=== PATIENT | female | born 1985 | race Two or more races ===

== ENCOUNTER 2019-05-08 15:05 | Observation (INO) | payer MEDICAID ==
[~2019-05-08 15:05] MED LIST: FERR-7 PO; PREN-96 PO
[2019-05-08 16:31] LABS: Albumin 2.4 g/dL (3.4-5.0); BUN/Creatinine Ratio 17.6; Calcium 8.3 mg/dL (8.5-10.1); Potassium 3.7 mmol/L (3.5-5.1)
[2019-05-08 16:34] LABS: Bilirubin, Total 0.2 mg/dL (0.2-1.0); Total Protein 6.9 g/dL (6.4-8.2)
== END 2019-05-08 16:00 | disposition home or self-care (01) | DRG 566 ==
LOC: LDRP 15:05 → MERGE 15:05
PROVIDERS: ADMIT Specialist; ATTEND Specialist
DX: O26.612 Liver and biliary tract disorders in pregnancy, second trimester (principal); Z3A.26 26 weeks gestation of pregnancy
CPT/HCPCS: 36415; 59025; 80053; 81002; G0378

== ENCOUNTER 2019-05-24 10:00 | Observation (INO) | payer MEDICAID ==
[2019-05-24] MEDS ORDERED: URSO300C9 PO (11:44)
[2019-05-24] MEDS ORDERED: ASPI81CH4 PO (11:44)
== END 2019-05-24 12:00 | disposition home or self-care (01) | DRG 566 ==
LOC: LDRP 10:00
PROVIDERS: ADMIT Specialist; ATTEND Specialist
DX: O26.893 Other specified pregnancy related conditions, third trimester (principal); L01.00 Impetigo, unspecified; L30.9 Dermatitis, unspecified; Z3A.28 28 weeks gestation of pregnancy
CPT/HCPCS: 76818; 81002; 99284; G0378

== ENCOUNTER 2019-05-29 16:07 | Observation (INO) | payer MEDICAID ==
[~2019-05-29] VITALS: Ht 154.9 cm; Wt 87.1 kg
[~2019-05-29 16:07] MED LIST changes: +ASPI81CH4 PO; +URSO300C9 PO
== END 2019-05-29 17:36 | disposition home or self-care (01) ==
LOC: LDRP 16:07
PROVIDERS: ADMIT Obstetrics & Gynecology; ATTEND Obstetrics & Gynecology
DX: K83.1 Obstruction of bile duct (principal)
CPT/HCPCS: 76818; G0378; 81002

== ENCOUNTER 2019-05-31 10:25 | Observation (INO) | payer MEDICAID ==
[~2019-05-31 10:25] MED LIST changes: -ASPI81CH4 PO; +ASPI81CH74 PO
== END 2019-05-31 12:46 | disposition home or self-care (01) | DRG 566 ==
LOC: LDRP 10:25
PROVIDERS: ADMIT Specialist; ATTEND Specialist
DX: O26.613 Liver and biliary tract disorders in pregnancy, third trimester (principal); K83.1 Obstruction of bile duct; Z3A.30 30 weeks gestation of pregnancy
CPT/HCPCS: 76818; G0378; 59025; 81002

== ENCOUNTER 2019-06-05 16:30 | Observation (INO) | payer MEDICAID ==
[2019-06-05 17:29] LABS: Basophils # (auto) 0 10 ^3/uL (0-0.2); Basophils % (auto) 0.4 % (0.0-2.0); Eosinophils # (auto) 0.7 10 ^3/uL (0-0.8); Eosinophils % (auto) 6.9 % (0.0-7.0); Hematocrit 34.7 % (36.0-46.0); Hemoglobin 11.3 g/dL (12.2-16.2); Lymphocytes % (auto) 20.8 % (10.0-50.0); Mean Corpuscular Hgb Conc. 32.7 g/dL (32.0-36.0); Mean Corpuscular Volume 85.5 fL (80.0-100.0); Monocytes # (auto) 0.4 10 ^3/uL (0-1.3); Monocytes % (auto) 4.2 % (0.0-12.0); Neutrophils # (auto) 6.5 10 ^3/uL (1.6-8.6); Neutrophils % (auto) 67.7 % (37.0-80.0); Platelet Count (auto) 340 10^3/uL (140-450); Red Blood Cells 4.06 10^6/uL (4.0-5.20); Red Cell Distribution Width 14.6 % (11.8-14.3); White Blood Cell 9.6 10^3/uL (4.4-10.8)
[2019-06-05 17:46] LABS: Albumin 2.4 g/dL (3.4-5.0); BUN/Creatinine Ratio 19.4; Calcium 8.6 mg/dL (8.5-10.1); Potassium 3.9 mmol/L (3.5-5.1)
[2019-06-05 17:49] LABS: Bilirubin, Total 0.2 mg/dL (0.2-1.0); Total Protein 6.9 g/dL (6.4-8.2)
== END 2019-06-05 17:23 | disposition home or self-care (01) | DRG 566 ==
LOC: LDRP 16:30
PROVIDERS: ADMIT Specialist; ATTEND Specialist
DX: O26.619 Liver and biliary tract disorders in pregnancy, unspecified trimester (principal); K83.1 Obstruction of bile duct; Z3A.00 Weeks of gestation of pregnancy not specified
CPT/HCPCS: 36415; 76818; 80053; 81002; 85025; G0378; 59025

== ENCOUNTER 2019-06-09 16:10 | Observation (INO) | payer MEDICAID ==
[~2019-06-09 16:10] MED LIST changes: +ASPI81CH4 PO; -ASPI81CH74 PO
== END 2019-06-09 17:25 | disposition home or self-care (01) | DRG 566 ==
LOC: LDRP 16:10
PROVIDERS: ADMIT Specialist; ATTEND Specialist
DX: O26.613 Liver and biliary tract disorders in pregnancy, third trimester (principal); N13.30 Unspecified hydronephrosis; O40.3XX0 Polyhydramnios, third trimester, not applicable or unspecified; O99.89 Other specified diseases and conditions complicating pregnancy, childbirth and the puerperium; Z3A.31 31 weeks gestation of pregnancy
CPT/HCPCS: 76818; 81002; G0378

== ENCOUNTER 2019-06-12 16:12 | Observation (INO) | payer MEDICAID ==
[~2019-06-12 16:12] MED LIST changes: -ASPI81CH4 PO; +ASPI81CH74 PO
== END 2019-06-12 17:31 | disposition home or self-care (01) | DRG 566 ==
LOC: LDRP 16:12
PROVIDERS: ADMIT Obstetrics & Gynecology; ATTEND Obstetrics & Gynecology
DX: O26.613 Liver and biliary tract disorders in pregnancy, third trimester (principal); Z3A.31 31 weeks gestation of pregnancy
CPT/HCPCS: 76818; 81002; G0378; 59025

== ENCOUNTER 2019-06-15 16:10 | Observation (INO) | payer MEDICAID ==
[~2019-06-15 16:10] MED LIST changes: +ASPI81CH4 PO; -ASPI81CH74 PO
== END 2019-06-15 17:20 | disposition home or self-care (01) | DRG 566 ==
LOC: LDRP 16:10
PROVIDERS: ADMIT Specialist; ATTEND Specialist
DX: O26.613 Liver and biliary tract disorders in pregnancy, third trimester (principal); K83.1 Obstruction of bile duct; Z3A.32 32 weeks gestation of pregnancy
CPT/HCPCS: 76818; 81002; G0378

== ENCOUNTER 2019-06-19 16:12 | Observation (INO) | payer MEDICAID ==
[2019-06-19 18:40] LABS: Albumin 2.2 g/dL (3.4-5.0); BUN/Creatinine Ratio 17.6; Calcium 8.3 mg/dL (8.5-10.1); Potassium 3.4 mmol/L (3.5-5.1)
[2019-06-19 18:43] LABS: Bilirubin, Total 0.3 mg/dL (0.2-1.0); Total Protein 6.8 g/dL (6.4-8.2)
== END 2019-06-19 18:20 | disposition home or self-care (01) | DRG 566 ==
LOC: LDRP 16:12
PROVIDERS: ADMIT Specialist; ATTEND Specialist
DX: O26.613 Liver and biliary tract disorders in pregnancy, third trimester (principal); K83.1 Obstruction of bile duct; Z3A.32 32 weeks gestation of pregnancy
CPT/HCPCS: 36415; 76818; 80053; 81002; G0378

== ENCOUNTER 2019-06-22 16:10 | Observation (INO) | payer MEDICAID | END 2019-06-22 17:48 | disposition home or self-care (01) | DRG 566 | LOC: LDRP 16:10 | PROVIDERS: ADMIT Specialist; ATTEND Specialist | DX: O26.613 Liver and biliary tract disorders in pregnancy, third trimester (principal); K83.1 Obstruction of bile duct; O40.3XX0 Polyhydramnios, third trimester, not applicable or unspecified; Z3A.33 33 weeks gestation of pregnancy | CPT/HCPCS: 76818; 81002; G0378 ==

== ENCOUNTER 2019-06-26 16:07 | Observation (INO) | payer MEDICAID | END 2019-06-26 17:35 | disposition home or self-care (01) | DRG 566 | LOC: LDRP 16:07 | PROVIDERS: ADMIT Specialist; ATTEND Specialist | DX: O40.3XX0 Polyhydramnios, third trimester, not applicable or unspecified (principal); K83.1 Obstruction of bile duct; O26.613 Liver and biliary tract disorders in pregnancy, third trimester; Z3A.33 33 weeks gestation of pregnancy | CPT/HCPCS: 76818; 81002; G0378 ==

== ENCOUNTER 2019-06-27 18:55 | Observation (INO) | payer MEDICAID ==
[~2019-06-27] VITALS: Ht 154.9 cm; Wt 88.5 kg
== END 2019-06-27 19:30 | disposition home or self-care (01) | DRG 566 ==
LOC: LDRP 18:55
PROVIDERS: ADMIT Obstetrics & Gynecology; ATTEND Obstetrics & Gynecology
DX: O36.8130 Decreased fetal movements, third trimester, not applicable or unspecified (principal); Z3A.34 34 weeks gestation of pregnancy
CPT/HCPCS: 59025; 81002; G0378

== ENCOUNTER 2019-06-29 19:30 | Observation (INO) | payer MEDICAID | END 2019-06-29 20:50 | disposition home or self-care (01) | DRG 566 | LOC: LDRP 19:30 | PROVIDERS: ADMIT Obstetrics & Gynecology; ATTEND Obstetrics & Gynecology | DX: O40.3XX0 Polyhydramnios, third trimester, not applicable or unspecified (principal); K83.1 Obstruction of bile duct; O26.613 Liver and biliary tract disorders in pregnancy, third trimester; Z3A.34 34 weeks gestation of pregnancy | CPT/HCPCS: 59025; 76818; 81002; G0378 ==

== ENCOUNTER 2019-07-03 17:21 | Observation (INO) | payer MEDICAID | END 2019-07-03 19:03 | disposition home or self-care (01) | DRG 566 | LOC: LDRP 17:21 | PROVIDERS: ADMIT Specialist; ATTEND Specialist | DX: O26.613 Liver and biliary tract disorders in pregnancy, third trimester (principal); K83.1 Obstruction of bile duct; O40.3XX0 Polyhydramnios, third trimester, not applicable or unspecified; Z3A.34 34 weeks gestation of pregnancy | CPT/HCPCS: 59025; 76818; 81002; G0378 ==

== ENCOUNTER 2019-07-06 18:03 | Observation (INO) | payer MEDICAID | END 2019-07-06 20:10 | disposition home or self-care (01) | DRG 566 | LOC: LDRP 18:03 | PROVIDERS: ADMIT Specialist; ATTEND Specialist | DX: O40.3XX0 Polyhydramnios, third trimester, not applicable or unspecified (principal); K83.1 Obstruction of bile duct; O26.62 Liver and biliary tract disorders in childbirth; Z3A.34 34 weeks gestation of pregnancy | CPT/HCPCS: 59025; 76818; 81002; G0378 ==

== ENCOUNTER 2019-07-10 16:57 | Observation (INO) | payer MEDICAID | END 2019-07-10 18:40 | disposition home or self-care (01) | DRG 566 | LOC: LDRP 16:57 | PROVIDERS: ADMIT Obstetrics & Gynecology; ATTEND Obstetrics & Gynecology | DX: O26.613 Liver and biliary tract disorders in pregnancy, third trimester (principal); K83.1 Obstruction of bile duct; O40.3XX0 Polyhydramnios, third trimester, not applicable or unspecified; Z3A.35 35 weeks gestation of pregnancy | CPT/HCPCS: 59025; 76818; 81002; G0378 ==

== ENCOUNTER 2019-07-12 10:06 | Observation (INO) | payer MEDICAID ==
[~2019-07-12] VITALS: Ht 152.4 cm; Wt 90.7 kg
[2019-07-12] MEDS ORDERED: BETAMETHASONE ACET (6MG/ML) 5ML VIAL IM ONE (10:30)
== END 2019-07-12 10:45 | disposition home or self-care (01) | DRG 566 ==
LOC: LDRP 10:06
PROVIDERS: ADMIT Obstetrics & Gynecology; ATTEND Obstetrics & Gynecology
DX: O26.613 Liver and biliary tract disorders in pregnancy, third trimester (principal); K83.1 Obstruction of bile duct; Z3A.35 35 weeks gestation of pregnancy
CPT/HCPCS: 96372; G0378; J0702

== ENCOUNTER 2019-07-13 09:45 | Observation (INO) | payer MEDICAID ==
[~2019-07-13] VITALS: Ht 162.6 cm; Wt 91.2 kg
[2019-07-13] MEDS ORDERED: BETAMETHASONE ACET (6MG/ML) 5ML VIAL IM ONE (10:30)
== END 2019-07-13 11:00 | disposition home or self-care (01) | DRG 563 ==
LOC: LDRP 09:45
PROVIDERS: ADMIT Obstetrics & Gynecology; ATTEND Obstetrics & Gynecology
DX: O60.03 Preterm labor without delivery, third trimester (principal); Z3A.35 35 weeks gestation of pregnancy
CPT/HCPCS: 59025; 76818; 81002; 96372; G0378

== ENCOUNTER 2019-07-14 07:25 | Observation (INO) | payer MEDICAID | END 2019-07-14 08:35 | disposition home or self-care (01) | DRG 566 | LOC: LDRP 07:25 | PROVIDERS: ADMIT Specialist; ATTEND Specialist | DX: O36.8130 Decreased fetal movements, third trimester, not applicable or unspecified (principal); O60.03 Preterm labor without delivery, third trimester; R10.9 Unspecified abdominal pain; Z3A.35 35 weeks gestation of pregnancy | CPT/HCPCS: 59025; 76818; 81002; G0378 ==

== ENCOUNTER 2019-07-17 08:15 | Inpatient (IN) | payer MEDICAID ==
[~2019-07-17] VITALS: Ht 157.5 cm; Wt 91.6 kg
[2019-07-17] VITALS (12 sets, daily range): BP systolic 94–131; BP diastolic 53–84
[2019-07-17] MEDS ORDERED: LACTATED RINGER'S 1,000 ML IV ONE (08:30)
[2019-07-17 09:17] LABS: Basophils # (auto) 0 10 ^3/uL (0-0.2); Basophils % (auto) 0.2 % (0.0-2.0); Eosinophils # (auto) 0.2 10 ^3/uL (0-0.8); Eosinophils % (auto) 1.7 % (0.0-7.0); Hematocrit 35.2 % (36.0-46.0); Hemoglobin 11.5 g/dL (12.2-16.2); Lymphocytes # (auto) 2.2 10 ^3/uL (0.4-5.4); Lymphocytes % (auto) 19.6 % (10.0-50.0); Mean Corpuscular Hemoglobin 27.5 pg (28.0-32.0); Mean Corpuscular Hgb Conc. 32.8 g/dL (32.0-36.0); Mean Corpuscular Volume 83.7 fL (80.0-100.0); Monocytes # (auto) 0.5 10 ^3/uL (0-1.3); Monocytes % (auto) 4.1 % (0.0-12.0); Neutrophils # (auto) 8.5 10 ^3/uL (1.6-8.6); Neutrophils % (auto) 74.4 % (37.0-80.0); Platelet Count (auto) 338 10^3/uL (140-450); Red Cell Distribution Width 14.9 % (11.8-14.3); White Blood Cell 11.4 10^3/uL (4.4-10.8)
[2019-07-17 09:18] LABS: Urine Bacteria NONE SEEN /hpf (None Seen); Urine Blood Negative /uL (Negative); Urine Mucus FEW (None Seen); Urine Specific Gravity 1.021 (1.001-1.035); Urine WBC <1 /hpf (0 - 5)
[2019-07-17 09:33] LABS: Albumin 2.3 g/dL (3.4-5.0); Calcium 7.9 mg/dL (8.5-10.1); Potassium 3.7 mmol/L (3.5-5.1)
[2019-07-17 09:33] LABS: Alcohol, Urine < 3.0 mg/dL (0-10); Amphetamine Screen, Urine NEGATIVE (NEGATIVE); Barbiturate Scree,Urine NEGATIVE (NEGATIVE); Benzodiazephine Screen, Urine NEGATIVE (NEGATIVE); Cannabinoid Screen, Urine NEGATIVE (NEGATIVE); Cocaine Screen, Urine NEGATIVE (NEGATIVE); Opiate Scree,Urine NEGATIVE (NEGATIVE); Phencyclidine Screen, Urine NEGATIVE (NEGATIVE)
[2019-07-17 09:37] LABS: BUN/Creatinine Ratio 23.5; Bilirubin, Total 0.3 mg/dL (0.2-1.0); Total Protein 6.5 g/dL (6.4-8.2)
[2019-07-17 09:42] LABS: INR 0.93 (0.9-1.15); Partial Thromboplastin Time 25.7 sec (23.64-32.05)
[2019-07-17] MEDS: LACTATED RINGER'S 1,000 ML IV SCH ×2 (11:38→16:36)
[2019-07-17] MEDS ORDERED: SUCCINYLCHOLINE CHLORIDE 20 MG/ML 10ML VIAL IV ONE (13:38)
[2019-07-17] MEDS ORDERED: NEOSTIGMINE 1 MG/ML INJ (10mg/10ML VIAL) IV ONE (13:38)
[2019-07-17] MEDS ORDERED: PROPOFOL 10 MG/ML 20 ML IV ONE (13:38)
[2019-07-17] MEDS ORDERED: GLYCOPYRROLATE 0.2 MG/ML 1ML VIAL IV ONE (13:38)
[2019-07-17] MEDS ORDERED: fentaNYL CITRATE 100 MCG/2 ML VL ONE (14:00)
[2019-07-17] MEDS ORDERED: ROCURONIUM 10MG/ML 10ML VIAL IV ONE (14:02)
[2019-07-17] MEDS ORDERED: LACTATED RINGER'S 1,000 ML IV SCH (14:50)
[2019-07-17] MEDS: HYDROmorphone HCL 2 MG/ML VL IV PRN ×6 (14:58→22:02)
[2019-07-17] MEDS ORDERED: HYDROmorphone HCL 2 MG/ML VL ONE (14:58)
[2019-07-17] MEDS ORDERED: ePHEDrine SULFATE 50 MG/ML AMP IV PRN (15:00)
[2019-07-17] MEDS ORDERED: ONDANSETRON HCL 4 MG/2 ML VIAL IV PRN ×2 (15:00)
[2019-07-17] MEDS ORDERED: hydrALAZINE HCL 20 MG/ML VL IV PRN (15:00)
[2019-07-17] MEDS ORDERED: ACETAMINOPHEN IV 1000 MG/100ML (10MG/ML) IV PRN (15:00)
[2019-07-17] MEDS ORDERED: ceFAZolin 1GM/50ML 50 ML IV SCH (15:00)
[2019-07-17] MEDS: ACETAMINOPHEN IV 1000 MG/100ML (10MG/ML) IV PRN (16:35)
[2019-07-17] MEDS: ceFAZolin 1GM/50ML 50 ML IV SCH (22:06)
[2019-07-18] VITALS (9 sets, daily range): BP systolic 101–131; BP diastolic 52–74
[2019-07-18] MEDS: LACTATED RINGER'S 1,000 ML IV SCH (00:30)
[2019-07-18] MEDS: HYDROmorphone HCL 2 MG/ML VL IV PRN ×3 (01:34→08:44)
[2019-07-18] MEDS: ACETAMINOPHEN IV 1000 MG/100ML (10MG/ML) IV PRN (05:04)
[2019-07-18] MEDS: ceFAZolin 1GM/50ML 50 ML IV SCH ×2 (05:32→15:10)
[2019-07-18 06:23] LABS: Basophils # (auto) 0.1 10 ^3/uL (0-0.2); Basophils % (auto) 0.5 % (0.0-2.0); Eosinophils # (auto) 0.1 10 ^3/uL (0-0.8); Eosinophils % (auto) 0.6 % (0.0-7.0); Hematocrit 27.8 % (36.0-46.0); Hemoglobin 9.3 g/dL (12.2-16.2); Lymphocytes # (auto) 1.6 10 ^3/uL (0.4-5.4); Lymphocytes % (auto) 11.9 % (10.0-50.0); Mean Corpuscular Hemoglobin 28.4 pg (28.0-32.0); Mean Corpuscular Hgb Conc. 33.6 g/dL (32.0-36.0); Mean Corpuscular Volume 84.4 fL (80.0-100.0); Monocytes # (auto) 0.6 10 ^3/uL (0-1.3); Monocytes % (auto) 4.7 % (0.0-12.0); Neutrophils # (auto) 10.8 10 ^3/uL (1.6-8.6); Neutrophils % (auto) 82.3 % (37.0-80.0); Platelet Count (auto) 272 10^3/uL (140-450); Red Blood Cells 3.29 10^6/uL (4.0-5.20); Red Cell Distribution Width 14.7 % (11.8-14.3); White Blood Cell 13.1 10^3/uL (4.4-10.8)
[2019-07-18] MEDS ORDERED: HYDROcodone-ACET 5/325MG TAB PO PRN (10:00)
[2019-07-18] MEDS ORDERED: SIMETHICONE 80 MG CHEWABLE TABLET PO PRN (10:00)
[2019-07-18] MEDS: DOCUSATE SOD 100 MG CAP PO SCH ×2 (11:50→22:25)
[2019-07-18] MEDS: DOCUSATE CALCIUM 240 MG CAP PO SCH (11:51)
[2019-07-18] MEDS: HYDROcodone-ACET 5/325MG TAB PO PRN ×3 (11:52→22:26)
[2019-07-18] MEDS: IBUPROFEN 800 MG TAB PO PRN (15:06)
[2019-07-19 01:53] LABS: RPR Non Reactive (Non Reactive)
[2019-07-19 03:09] VITALS: BP 106/66
[2019-07-19 06:56] VITALS: BP 116/70
[2019-07-19] MEDS: IBUPROFEN 800 MG TAB PO PRN (08:53)
[2019-07-19] MEDS: DOCUSATE SOD 100 MG CAP PO SCH ×2 (10:19→22:00)
[2019-07-19] MEDS: DOCUSATE CALCIUM 240 MG CAP PO SCH (10:19)
[2019-07-19 10:30] VITALS: BP 110/61
[2019-07-19] MEDS: HYDROcodone-ACET 5/325MG TAB PO PRN ×2 (14:27→19:39)
[2019-07-19 15:22] VITALS: BP 120/69
[2019-07-19 19:00] VITALS: BP 126/73
[2019-07-19] MEDS ORDERED: BISACODYL 10 MG RECT SUPP PR ONE (21:00)
[2019-07-19 23:00] VITALS: BP 128/76
[2019-07-20] MEDS: HYDROcodone-ACET 5/325MG TAB PO PRN ×2 (02:23→07:16)
[2019-07-20 03:00] VITALS: BP 115/78
[2019-07-20] MEDS: IBUPROFEN 800 MG TAB PO PRN (04:59)
[2019-07-20 06:57] VITALS: BP 118/65
[2019-07-20] MEDS: DOCUSATE CALCIUM 240 MG CAP PO SCH (09:39)
[2019-07-20] MEDS: DOCUSATE SOD 100 MG CAP PO SCH (09:40)
[2019-07-20 10:03] VITALS: BP 115/62
== END 2019-07-20 10:14 | disposition home or self-care (01) | DRG 540 ==
LOC: LDRP 08:15 → OBSVTOIN 08:15 → LDRP 08:35
PROVIDERS: ADMIT Specialist; ATTEND Specialist
PROC: 0UL70CZ Occlusion of Bilateral Fallopian Tubes with Extraluminal Device, Open Approach (ICD-10-PCS; 2019-07-17)
PROC: 0DNU0ZZ Release Omentum, Open Approach (ICD-10-PCS; 2019-07-17)
PROC: 10D00Z1 Extraction of Products of Conception, Low, Open Approach (ICD-10-PCS; principal; 2019-07-17 13:38)
DX: O26.62 Liver and biliary tract disorders in childbirth (principal); K83.1 Obstruction of bile duct; O34.211 Maternal care for low transverse scar from previous cesarean delivery; K66.0 Peritoneal adhesions (postprocedural) (postinfection); O99.62 Diseases of the digestive system complicating childbirth; Z37.0 Single live birth; Z30.2 Encounter for sterilization; Z3A.36 36 weeks gestation of pregnancy
CPT/HCPCS: 36415; 51702; 80053; 80307; 81001; 84112; 85025; 85610; 85730; 86592; 86850; 86900; 86901; 94760; 96361; 96375; G0378; J0131; J0330; J0690; J2704